=== PATIENT | female | born 1985 | race African-American/Black ===

== ENCOUNTER 2024-11-30 11:20 | Emergency (ER) | payer BC ==
[~2024-11-30] VITALS: Ht 165.1 cm; Wt 100.0 kg
[2024-11-30 11:40] VITALS: PULSE 60; RESP 20; TEMP 98.8; O2SAT 100
[2024-11-30] MEDS ORDERED: PREDNISONE20 MG PO (11:57)
[2024-11-30] MEDS ORDERED: HYDROCODON-ACE1 EA11 PO (11:58)
== END 2024-11-30 12:05 | disposition home or self-care (01) ==
LOC: FSED 11:49
DX: M54.42 Lumbago with sciatica, left side (principal); R01.1 Cardiac murmur, unspecified
CPT/HCPCS: 99284